=== PATIENT | female | born 1940 | race Caucasian/White ===

== ENCOUNTER 2019-06-27 09:33 | Inpatient (IN) ==
[2019-06-27] MEDS ORDERED: IPRATROPIUM/ALBUTEROL 3 ML AMPUL.NEB NEB ONE (09:42)
--- NOTE | 2019-06-27 09:56 | Emergency Department Note ---
General Adult HPI - General Chief complaint: Shortness of Breath/Dyspnea Stated complaint: SOB Time Seen by Provider: 06/27/19 09:41 Source: patient Mode of arrival: ambulatory Limitations: no limitations - History of Present Illness HPI Narrative: 79-year-old alert white female, former smoker with a long history of COPD on nebulizers and prednisone 5 mg daily for the last month and being followed by pulmonology in [place], last hospital admission for complicated pneumonia with sepsis about 4 years ago per patient, did have her flu and Pneumovax vaccines this season however in spite of that has developed increased shortness of breath and wheezing over the last 1 to 2 weeks with intermittent fever. She is used nebulizer and steroid but not recent antibiotic and came to the emergency department having driven herself from home this morning. She is denied focal neurologic symptoms anginal type chest pain severe weakness vomiting or GI symptoms. Her desires to be treated in the emergency department and then discharged. She is a and lives in [place] but does have an adult grandson age 30 with whom helps to take care of her. Onset (ago): week(s) - Related Data Home Medications Medication Instructions Recorded Confirmed Fluticasone/Salmeterol [Advair 1 puff INH QDAY 12/20/15 06/27/19 100-50 Diskus] Montelukast Sodium [Singulair] 10 mg PO DAILY 12/20/15 06/27/19 Simvastatin [Zocor] 10 mg PO HS 12/20/15 05/28/19 Calcium 600 PO QDAY 05/14/19 06/27/19 acetaminophen 650 mg 650 mg PO BID PRN tab 05/14/19 06/27/19 tablet,extended release albuterol sulfate 2.5 mg INHALATION QID PRN 05/14/19 06/27/19 albuterol sulfate 90 mcg/actuation 2 puff INHALATION BID PRN g 05/14/19 06/27/19 aerosol inhaler fluticasone propionate 230 2 puff INHALATION BID 05/14/19 06/27/19 mcg-salmeterol 21 mcg/actuation HFA inhaler multivit with min-folic 1 tab PO QDAY 05/14/19 06/27/19 acid-lutein 400 mcg-250 mcg chewable tablet multivit,Ca,iron,yrp-NT-jqnxbbd-tqawauv-qnbt-FAQP cap PO 05/14/19 06/27/19 3 mg-133 mcg capsule omeprazole 20 mg capsule,delayed 20 mg PO QDAY 05/14/19 06/27/19 release tiotropium bromide 18 mcg capsule 1 cap INHALATION QDAY 05/14/19 05/16/19 with inhalation device vit C-vit N-bnnulb-wwl-om-3 PO 05/14/19 05/16/19 2 liters oxygen at QHS #1 ea 05/16/19 06/27/19 budesonide 1 mg/2 mL suspension 2 ml INHALATION QDAY 05/16/19 06/27/19 for nebulization triple flex PO 05/16/19 05/16/19 prednisone 10 mg tablet 30 mg PO .COMPLEX tab 05/22/19 06/27/19 Allergies Allergy/AdvReac Type Severity Reaction Status Date / Time hydrocodone Allergy Intermediate Itching Verified 06/27/19 09:15 codeine Allergy Mild Itching Verified 05/28/19 12:50 morphine Allergy Mild Itching Verified 05/28/19 12:50 levofloxacin [From Levaquin] Allergy Unknown Unknown Verified 05/28/19 12:50 risedronate sodium Allergy Unknown Unknown Verified 05/28/19 12:50 [From Actonel] Sulfa (Sulfonamide AdvReac Intermediate Hives Verified 06/27/19 09:15 Antibiotics) Review of Systems All systems ED: reviewed and negative except as stated. Cardiovascular: Reports: as per HPI Respiratory: Reports: as per HPI Gastrointestinal: Reports: as per HPI Past Medical History - Past Medical History [facility], [facility] Narrative: There is a history of a recent CT scan 28 May which showed relative resolution of a right lower lobe nodule from 15 to 10 mm and the initial plan to do a lung biopsy was then scrapped. She has no history of hypertension diabetes or known coronary artery disease. Source: old records reviewed Medical history: Reports: asthma, COPD, GERD, migraine Psychiatric history: Reports: no psych history Surgical history ED: Reports: appendectomy, cholecystectomy, hysterectomy - Social History smoking status: Never smoker Alcohol use: Reports: None Drug use: Reports: none Physical Exam Alert somewhat frail elderly white female appearing moderately dyspneic. Blood pressure is probably unremarkable for her. Saturation is 93% on room air. Limitations: no limitations General appearance: alert Head: atraumatic Eye: Present: normal appearance ENT: Present: normal exam Respiratory: Present: respiratory distress, wheezes, prolonged expiratory phase, decreased breath sounds Cardiovascular: Present: regular rate, normal rhythm Abdominal: Present: soft Extremities: Present: normal inspection Back: Present: normal inspection Course Course Narrative: Clinical presentation is that of a significant COPD exacerbation. She is given DuoNeb, dexamethasone 10 mg intravenous, and empirically 1 g of IV calf tract stone and 500 mg of IV azithromycin. Vital Signs Temperature 97 F 06/27/19 09:33 Pulse Rate 108 H 06/27/19 09:33 Respiratory Rate 32 H 06/27/19 09:33 Blood Pressure 91/58 06/27/19 09:33 Pulse Oximetry (%) 93 06/27/19 09:33 Temperature 97 F 06/27/19 09:33 Pulse Rate 84 06/27/19 12:56 Respiratory Rate 23 H 06/27/19 12:56 Blood Pressure 124/75 06/27/19 12:46 Pulse Oximetry (%) 94 06/27/19 12:56 Medical Decision Making - [facility] Narrative Medical decision making narrative: Exacerbation of COPD rule out pneumIA 12:30 PM: Patient feeling better and still has the desire to go home however I feel despite some relatively favorable labs given her age and exacerbation of CV COPD that admission is more favorable for her. I will attempt to call the hospitalist. [address] dodd agrees to admission will see patient and I believe her prognosis is excellent for recovery. - Lab Data Lab results reviewed: Yes I reviewed the patient's lab results. Lab results narrative: Lab results largely favorable. There is a leukocytosis indicative of infection however lactate is acceptable and troponin is low. BNP is indeterminate CMP is otherwise unremarkable as are the other aspects of the CBC. Result diagrams: 06/27/19 09:42 06/27/19 09:42 Lab Results 06/27/19 06/27/19 06/27/19 Range/Units 09:42 09:42 09:42 WBC 16.5 H (4.5-11.0) K/mcL RBC 4.56 (4.00-5.20) M/mcL Hgb 14.3 (12.0-15.0) g/dL Hct 42.9 (36.0-48.0) % MCV 94.1 (80.0-100.0) fL MCH 31.3 (26.0-34.0) pg MCHC 33.3 (31.0-36.0) g/dL RDW 12.6 (11.5-14.5) % Plt Count 383 (140-440) K/mcL MPV 7.3 L (7.4-10.4) fL Gran % 75.8 (38.0-78.0) % Lymph % (Auto) 13.3 L (15.5-49.0) % [place] % (Auto) 8.0 (1.0-12.0) % Eos % (Auto) 2.7 (0.0-7.0) % Baso % (Auto) 0.2 (0.0-2.0) % Gran # 12.5 H (1.8-8.0) K/mcL Lymph # (Auto) 2.2 (1.5-4.8) K/mcL [place] # (Auto) 1.3 H (0.1-0.9) K/mcL Eos # (Auto) 0.4 (0.0-0.7) K/mcL Baso # (Auto) 0 (0.0-0.3) K/mcL VBG Lactic Acid 1.8 (0.5-2.0) mmol/L Sodium 138 (133-145) mmol/L Potassium 4.1 (3.3-5.1) mmol/L Chloride 99 (96-108) mmol/L Carbon Dioxide 23 (22-30) mmol/L Anion Gap 16.0 (8-16) BUN 16 (8-23) mg/dl Creatinine 0.7 (0.6-1.1) mg/dl GFR Calculation 84 Glucose 96 (70-105) mg/dL Calcium 9.4 (8.6-10.4) mg/dl Total Bilirubin 0.5 (0.0-1.0) mg/dL AST 25 (0-37) U/l ALT 22 (0-40) U/l Alkaline Phosphatase 112 (39-117) U/L Troponin T (0-0.03) ng/ml NT-Pro-B Natriuret Pep (0-450) pg/ml Total Protein 7.3 (5.9-8.4) gm/dL Albumin 3.8 (3.2-5.2) gm/dL Globulin 3.5 (2.2-3.7) gm/dL Albumin/Globulin Ratio 1.1 (1.0-2.3) 06/27/19 06/27/19 Range/Units 09:42 09:42 WBC (4.5-11.0) K/mcL RBC (4.00-5.20) M/mcL Hgb (12.0-15.0) g/dL Hct (36.0-48.0) % MCV (80.0-100.0) fL MCH (26.0-34.0) pg MCHC (31.0-36.0) g/dL RDW (11.5-14.5) % Plt Count (140-440) K/mcL MPV (7.4-10.4) fL Gran % (38.0-78.0) % Lymph % (Auto) (15.5-49.0) % [place] % (Auto) (1.0-12.0) % Eos % (Auto) (0.0-7.0) % Baso % (Auto) (0.0-2.0) % Gran # (1.8-8.0) K/mcL Lymph # (Auto) (1.5-4.8) K/mcL [place] # (Auto) (0.1-0.9) K/mcL Eos # (Auto) (0.0-0.7) K/mcL Baso # (Auto) (0.0-0.3) K/mcL VBG Lactic Acid (0.5-2.0) mmol/L Sodium (133-145) mmol/L Potassium (3.3-5.1) mmol/L Chloride (96-108) mmol/L Carbon Dioxide (22-30) mmol/L Anion Gap (8-16) BUN (8-23) mg/dl Creatinine (0.6-1.1) mg/dl GFR Calculation Glucose (70-105) mg/dL Calcium (8.6-10.4) mg/dl Total Bilirubin (0.0-1.0) mg/dL AST (0-37) U/l ALT (0-40) U/l Alkaline Phosphatase (39-117) U/L Troponin T < 0.01 (0-0.03) ng/ml NT-Pro-B Natriuret Pep 231.5 (0-450) pg/ml Total Protein (5.9-8.4) gm/dL Albumin (3.2-5.2) gm/dL Globulin (2.2-3.7) gm/dL Albumin/Globulin Ratio (1.0-2.3) - Radiology Data Radiology results reviewed: Yes I reviewed the patient's radiology results. Chest x-ray reveals a minimal right middle lobe and right lower lobe infiltrate there is no sign of pneumothorax or pleural effusion. Disposition Pt seen by [facility] TEST/PA only: No Clinical Impression: Community acquired pneumonia Disposition: Xfer As Inpt ([facility]) Condition: Good Referrals: Destinee Johnson MD [Primary Care Provider] -
[2019-06-27] MEDS ORDERED: DEXAMETHASONE 10 MG/ML VIAL IV ONE (09:57)
[2019-06-27] MEDS ORDERED: cefTRIAXone 1 GM VIAL IV ONE ×2 (10:00→15:15)
[2019-06-27] MEDS ORDERED: AZITHROMYCIN 500 MG in DEXTROSE 5% IN WATER 250 ML IV ONE (10:01)
[2019-06-27 10:14] LABS: Basophils # (Auto) 0 K/mcL (0.0-0.3); Basophils % (Auto) 0.2 % (0.0-2.0); Eosinophils # (Auto) 0.4 K/mcL (0.0-0.7); Eosinophils % (Auto) 2.7 % (0.0-7.0); Granulocytes % (Auto) 75.8 % (38.0-78.0); Hematocrit 42.9 % (36.0-48.0); Hemoglobin 14.3 g/dL (12.0-15.0); Lymphocytes # (Auto) 2.2 K/mcL (1.5-4.8); Lymphocytes % (Auto) 13.3 % (15.5-49.0); Mean Cell Volume 94.1 fL (80.0-100.0); Mean Corpuscular HGB Conc 33.3 g/dL (31.0-36.0); Mean Platelet Volume 7.3 fL (7.4-10.4); Monocytes # (Auto) 1.3 K/mcL (0.1-0.9); Platelet Count 383 K/mcL (140-440); RBC 4.56 M/mcL (4.00-5.20); Red Cell Distribution Width 12.6 % (11.5-14.5); WBC 16.5 K/mcL (4.5-11.0)
--- NOTE | 2019-06-27 10:16 | XRay Report ---
HISTORY: Short of breath and cold symptoms FINDINGS: Patient has severe emphysema. There is moderate pulmonary fibrosis in both lung apices. There is an ill-defined interstitial infiltrate in the right lower lobe and right middle lobe. No lobar consolidation is present. There is no evidence of a mass, pleural effusion, adenopathy or congestive heart failure. The heart size is relatively small. Spine is osteopenic. IMPRESSION: mild interstitial pneumonia in the right middle and lower lobes superimposed upon underlying emphysema and pulmonary fibrosis Interpreted and Authenticated by: Mor Walters 06/27/19
[2019-06-27 10:33] LABS: ALT/SGPT 22 U/l (0-40); AST/SGOT 25 U/l (0-37); Albumin 3.8 gm/dL (3.2-5.2); Albumin/Globulin Ratio 1.1 (1.0-2.3); Alkaline Phosphatase 112 U/L (39-117); Bilirubin,Total 0.5 mg/dL (0.0-1.0); Blood Urea Nitrogen 16 mg/dl (8-23); Calcium 9.4 mg/dl (8.6-10.4); Carbon Dioxide 23 mmol/L (22-30); Chloride 99 mmol/L (96-108); Globulin 3.5 gm/dL (2.2-3.7); Glomerular Filtration Rate 84; Glucose 96 mg/dL (70-105)
--- NOTE | 2019-06-27 13:31 | Internal Med History&Physical ---
Medical - H&P: HPI Patient information: Note initiated : 06/27/19 at 1:28 pm Service Date, if different from initiated Date: [] Patient: Toyin Peña a 79 y/o F admitted on for Shortness of breath. Chief Complaint: [] History of present illness: Ms. Peña is a 79 year old F Presents the ED with coughing shortness of breath. She says about 9 days ago she developed's cold like symptoms with body aches gradually improved yesterday morning she is feeling okay but this morning she suddenly felt very short of breath she had a productive cough of yellow-green sputum she felt very wheezy. Presented to the ED. In the ED she received antibiotics steroids and nebulizer treatment which she does feel better. She is oxygenating appropriately on her home oxygen requirement of 2 L. Was noted to be tachypneic and tachycardic initially low blood pressure but not hypotensive. Leukocytosis. Recent diagnosis of a lung nodule right lower lobe. She was given a lung biopsy and a follow-up CT showed improvement in the size of the right lower lobe nodule. Chest x-ray today does show an infiltrate right lower lobe and also right middle lobe. Patient desired to go home but per discussion with ED provider was recommended to stay and patient was willing. She reports fevers and chills. Headache at times. Denies chest pain Review of Systems: Pertinent positives as above. Denies nausea/vomiting/chest or abdominal pain/diarrhea. Remaining 10 point review of system reviewed negative Medical - H&P: PMH Medical history: Medical History (Last Reviewed 06/27/19 @ 09:28 by Ammy Machado DO) Nodule of right lung (Chronic) Pruritus (Chronic) Heart murmur (Chronic) Diarrhea (Chronic) Chronic rhinitis (Chronic) Cramp in lower leg (Chronic) Carotid bruit (Chronic) Osteoarthritis (Chronic) Hyperlipidemia (Chronic) Dry skin dermatitis (Chronic) Pulmonary hypertension (Chronic) Depression (Chronic) Esophageal dysphagia (Chronic) GERD (gastroesophageal reflux disease) (Chronic) Severe chronic obstructive pulmonary disease (Chronic) Chronic sinusitis (Chronic) Rhinitis, allergic (Chronic) Arthritis of both hands (Chronic) Allergies (Chronic) Lung collapse (Chronic) Asthma (Chronic) COPD (chronic obstructive pulmonary disease) (Chronic) on 2 L of oxygen at home Acute respiratory failure (Acute) Right lower lobe pneumonia (Acute) Septic shock (Acute) FAY (acute kidney injury) (Acute) COPD exacerbation (Chronic) Laceration of left lower leg without complication (Acute) Wound infection (Acute) Lower leg laceration with complication (Acute) Encounter for wound re-check (Acute) Encounter for removal of sutures (Acute) Acute exacerbation of chronic obstructive airways disease (Acute) Asthma with exacerbation (Acute) Collapse of right lung (Acute) Past Surgical History (Last Reviewed 05/22/19 @ 14:28 by JOSESITO Streeter) History of appendectomy (Chronic) History of arthroscopy of left knee (Chronic) History of bladder surgery (Chronic) History of cholecystectomy (Chronic) History of esophagogastroduodenoscopy (EGD) (Chronic) History of partial hysterectomy (Chronic) History of surgery on arm (Chronic) Family History (Last Reviewed 05/22/19 @ 14:28 by JOSESITO Streeter) Father Heart trouble Diabetes mellitus Myocardial infarction Heart disease Sister Arthritis Asthma Diabetes mellitus Mother Vertigo Hiatal hernia Old age Grandmother Asthma Grandfather Diabetes mellitus Brother Assault by being hit or run over by motor vehicle, initial encounter Social History (Last Updated 06/27/19 @ 09:30 by Ammy Machado DO) Quit smoking the 80s Drinks alcohol occasionally Lives at home with her grandson Medical - H&P: Meds Home Medications Medication Instructions Recorded Confirmed Type Fluticasone/Salmeterol [Advair 1 puff INH QDAY 12/20/15 06/27/19 History 100-50 Diskus] Montelukast Sodium [Singulair] 10 mg PO DAILY 12/20/15 06/27/19 History Simvastatin [Zocor] 10 mg PO HS 12/20/15 05/28/19 History Calcium 600 PO QDAY 05/14/19 06/27/19 History acetaminophen 650 mg 650 mg PO BID PRN tab 05/14/19 06/27/19 History tablet,extended release albuterol sulfate 2.5 mg INHALATION QID PRN 05/14/19 06/27/19 History albuterol sulfate 90 mcg/actuation 2 puff INHALATION BID PRN g 05/14/19 06/27/19 History aerosol inhaler fluticasone propionate 230 2 puff INHALATION BID 05/14/19 06/27/19 History mcg-salmeterol 21 mcg/actuation HFA inhaler multivit with min-folic 1 tab PO QDAY 05/14/19 06/27/19 History acid-lutein 400 mcg-250 mcg chewable tablet multivit,Ca,iron,qoi-CV-qsbuamz-uvdklyk-ybps-DNAN cap PO 05/14/19 06/27/19 History 3 mg-133 mcg capsule omeprazole 20 mg capsule,delayed 20 mg PO QDAY 05/14/19 06/27/19 History release tiotropium bromide 18 mcg capsule 1 cap INHALATION QDAY 05/14/19 05/16/19 History with inhalation device vit C-vit N-lwwcne-wdy-om-3 PO 05/14/19 05/16/19 History 2 liters oxygen at QHS #1 ea 05/16/19 06/27/19 History budesonide 1 mg/2 mL suspension 2 ml INHALATION QDAY 05/16/19 06/27/19 History for nebulization triple flex PO 05/16/19 05/16/19 History prednisone 10 mg tablet 30 mg PO .COMPLEX tab 05/22/19 06/27/19 History Tiotropium [place] [Spiriva] 18 mcg INH DAILY 06/27/19 06/27/19 History Allergies Allergy/AdvReac Type Severity Reaction Status Date / Time hydrocodone Allergy Intermediate Itching Verified 06/27/19 09:15 codeine Allergy Mild Itching Verified 05/28/19 12:50 morphine Allergy Mild Itching Verified 05/28/19 12:50 levofloxacin [From Levaquin] Allergy Unknown Unknown Verified 05/28/19 12:50 risedronate sodium Allergy Unknown Unknown Verified 05/28/19 12:50 [From Actonel] Sulfa (Sulfonamide AdvReac Intermediate Hives Verified 06/27/19 09:15 Antibiotics) Medical - H&P: Exam - Constitutional Vitals: Temp Pulse Resp BP Pulse Ox 97 F 94 H 15 135/65 93 06/27/19 09:33 06/27/19 13:25 06/27/19 13:25 06/27/19 13:25 06/27/19 13:25 Exam: General: Alert, Awake, No acute Distress Eyes/N/T: EOMI, PERRL, dry MM Head/Neck: neck supple, normocephalic atraumatic CV: RRR, No murmurs, normal s1/s2 Pulm: b/l wheezing, no rales Abd: soft, nontender, +BS x4 Ext: no clubbing/cyanosis/edema Neuro: Alert, no focal deficits, moves all extremities, CN 2-12 grossly intact, symmetrical strength b/l upper/lower, sensations intact b/l upper/lower Skin: warm/dry Medical - H&P: Reslt - Labs CBC & Chem 7: 06/27/19 09:42 06/27/19 09:42 Labs: Short CBC 06/27/19 Range/Units 09:42 WBC 16.5 H (4.5-11.0) K/mcL Hgb 14.3 (12.0-15.0) g/dL Hct 42.9 (36.0-48.0) % Plt Count 383 (140-440) K/mcL BMP 06/27/19 09:42 Sodium 138 Potassium 4.1 Chloride 99 Carbon Dioxide 23 BUN 16 Creatinine 0.7 Glucose 96 Calcium 9.4 Cardiac Enzymes 06/27/19 Range/Units 09:42 Troponin T < 0.01 (0-0.03) ng/ml Liver Function 06/27/19 Range/Units 09:42 Total Bilirubin 0.5 (0.0-1.0) mg/dL AST 25 (0-37) U/l ALT 22 (0-40) U/l Alkaline Phosphatase 112 (39-117) U/L Albumin 3.8 (3.2-5.2) gm/dL - Impressions Chest today with infiltrate right Medical - H&P: A/P - Narrative A/P Narrative: 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 *suspected PNA: PSI 87 -cxr with noted infiltrate RML/RLL, RLL infiltrate noted as nodule on recent CT that reduced in size on most recent CT, thus original lung bx ordered d/c'd *Pulm Fibrosis: *GERD * P: -vbg/pct pending -steroids(wean), nebs -IS/acapella -Abx, pending SC - -pt/ot -ppx: Lovenox DNR
[2019-06-27] MEDS ORDERED: 0.9 % SODIUM CHLORIDE 1,000 ML IV ONE (13:39)
[2019-06-27 13:58] LABS: ABG Methemoglobin 0.3 % (0.4-1.5); Total Hemoglobin 13.5 gm/dL (12.0-15.0); VBG HCO3 28.6 mmol/L (24.0-28.0); VBG Oxygen Saturation 81.9 % (40.0-70.0); VBG PH 7.44 U (7.32-7.42); VBG PO2 49 mmHg (25-40); VBG Total CO2 29.9 mmol/L (25.0-29.0)
[2019-06-27] MEDS ORDERED: 0.9 % SODIUM CHLORIDE 1,500 ML IV SCH (14:42)
[2019-06-27] MEDS ORDERED: SENNOSIDES 1 TABLET PO PRN (14:42)
[2019-06-27] MEDS ORDERED: MAGNESIUM SULFATE 2 GM/50 ML BAG IV PRN (14:42)
[2019-06-27] MEDS ORDERED: POLYETHYLENE GLYCOL 3350 17 GM PACKET PO PRN (14:42)
[2019-06-27] MEDS ORDERED: ONDANSETRON 4 MG/2 ML VIAL IV PRN (14:42)
[2019-06-27] MEDS ORDERED: POTASSIUM CHLORIDE 40 MEQ in DEXTROSE 5% IN WATER 500 ML IV PRN (14:42)
[2019-06-27] MEDS ORDERED: ACETAMINOPHEN 325 MG TABLET PO PRN (14:42)
[2019-06-27] MEDS ORDERED: IPRATROPIUM/ALBUTEROL 3 ML AMPUL.NEB NEB PRN (14:42)
[2019-06-27] MEDS ORDERED: POTASSIUM CHLORIDE 20 MEQ TABLET PO PRN ×2 (14:42)
[2019-06-27] MEDS: 0.9 % SODIUM CHLORIDE 10 ML SYRINGE IV SCH ×2 (16:10→20:09)
[2019-06-27] MEDS: IPRATROPIUM/ALBUTEROL 3 ML AMPUL.NEB NEB SCH (17:58)
[2019-06-27] MEDS: MONTELUKAST 10 MG TABLET PO SCH (20:09)
[2019-06-27] MEDS: SIMVASTATIN 10 MG TABLET PO SCH (20:09)
[2019-06-27] MEDS: BUDESONIDE 0.5 MG/2 ML AMPUL.NEB NEB SCH (20:29)
[2019-06-28] MEDS: IPRATROPIUM/ALBUTEROL 3 ML AMPUL.NEB NEB SCH ×4 (00:59→19:13)
[2019-06-28] MEDS: 0.9 % SODIUM CHLORIDE 10 ML SYRINGE IV SCH ×3 (05:47→20:37)
[2019-06-28 06:02] LABS: Basophils # (Auto) 0 K/mcL (0.0-0.3); Basophils % (Auto) 0.2 % (0.0-2.0); Eosinophils # (Auto) 0 K/mcL (0.0-0.7); Eosinophils % (Auto) 0.3 % (0.0-7.0); Granulocytes % (Auto) 78.2 % (38.0-78.0); Hematocrit 41.7 % (36.0-48.0); Hemoglobin 13.7 g/dL (12.0-15.0); Lymphocytes # (Auto) 2.2 K/mcL (1.5-4.8); Lymphocytes % (Auto) 14.3 % (15.5-49.0); Mean Cell Volume 95.3 fL (80.0-100.0); Mean Corpuscular HGB Conc 32.9 g/dL (31.0-36.0); Mean Platelet Volume 7.3 fL (7.4-10.4); Monocytes # (Auto) 1.1 K/mcL (0.1-0.9); Platelet Count 405 K/mcL (140-440); RBC 4.38 M/mcL (4.00-5.20); Red Cell Distribution Width 12.8 % (11.5-14.5); WBC 15.4 K/mcL (4.5-11.0)
[2019-06-28 06:19] LABS: ALT/SGPT 22 U/l (0-40); AST/SGOT 19 U/l (0-37); Albumin 3.7 gm/dL (3.2-5.2); Albumin/Globulin Ratio 1.1 (1.0-2.3); Alkaline Phosphatase 116 U/L (39-117); Bilirubin,Direct < 0.2 mg/dL (0.0-0.3); Bilirubin,Total 0.4 mg/dL (0.0-1.0); Blood Urea Nitrogen 17 mg/dl (8-23); Calcium 9.2 mg/dl (8.6-10.4); Carbon Dioxide 21 mmol/L (22-30); Chloride 102 mmol/L (96-108); Globulin 3.3 gm/dL (2.2-3.7); Glomerular Filtration Rate 88; Glucose 90 mg/dL (70-105); Lactate Dehydrogenase 248 U/L (94-250); Phosphorous 3.7 mg/dL (2.7-4.5); Triglycerides 135 mg/dl (<150)
[2019-06-28] MEDS: BUDESONIDE 0.5 MG/2 ML AMPUL.NEB NEB SCH (07:10)
--- NOTE | 2019-06-28 08:04 | Internal Med Progress Note ---
Medical - PN: Subj Patient information: Note initiated : 06/28/19 at 7:59 am Service Date, if different from initiated Date: [] Patient: Toyin Peña 79 y/o F admitted on 06/27/19 for Shortness of breath. Chief Complaint: [] Interval history: Ms. Peña is a 79 year old F Presents the ED with coughing shortness of breath. She says about 9 days ago she developed's cold like symptoms with body aches gradually improved yesterday morning she is feeling okay but this morning she suddenly felt very short of breath she had a productive cough of yellow-green sputum she felt very wheezy. Presented to the ED. In the ED she received antibiotics steroids and nebulizer treatment which she does feel better. She is oxygenating appropriately on her home oxygen requirement of 2 L. Was noted to be tachypneic and tachycardic initially low blood pressure but not hypotensive. Leukocytosis. Recent diagnosis of a lung nodule right lower lobe. She was given a lung biopsy and a follow-up CT showed improvement in the size of the right lower lobe nodule. Chest x-ray today does show an infiltrate right lower lobe and also right middle lobe. Patient desired to go home but per discussion with ED provider was recommended to stay and patient was willing. She reports fevers and chills. Headache at times. Denies chest pain 06/28 Poor sleep. She states overall she is improving. She feels her cough is better and her shortness of breath is improving not quite to baseline but getting better. Review of Systems: Pertinent positives as above. Denies nausea/vomiting/chest or abdominal pain/diarrhea. - Constitutional Vitals: Vital Signs Temp Pulse Resp BP Pulse Ox 97.7 F 78 14 117/65 94 06/28/19 04:00 06/28/19 07:10 06/28/19 07:10 06/28/19 04:00 06/28/19 07:10 Period Temp Pulse Resp BP Sys/San Pulse Ox Last 24 Hr 97 F-98 F 72-108 14-32 91-135/53-75 92-95 Intake and Output 06/27/19 06/28/19 06/28/19 21:59 05:59 13:59 Intake Total 97 1850 Output Total 400 Balance -303 1850 Weight 59.058 kg Intake & Output: Intake & Output 06/27/19 06/28/19 06/28/19 21:59 05:59 13:59 Intake Total 97 1850 Output Total 400 Balance -303 1850 Weight 59.058 kg Intake: IV 97 1500 Sodium Chloride 0.9% 1,500 ml @ 97 1500 200 mls/hr IV .Q7H30M [facility] Rx#: [id number] Oral 350 Output: Void Amount 400 Other: Urine Odor Normal # Voids 1 2 Exam: General: Alert, Awake, No acute Distress Eyes/N/T: EOMI, Head/Neck: neck supple, CV: RRR, No murmurs, Pulm: b/l wheezing, diminished b/l, no rales Abd: soft, nontender, +BS x4 Ext: no clubbing/cyanosis/edema Neuro: Alert, no focal deficits, moves all extremities, Skin: warm/dry Medical - PN: Obj Da - Labs CBC & Chem 7: 06/28/19 04:40 06/28/19 04:40 Labs: Abnormal Lab Results 06/28/19 06/28/19 06/27/19 04:40 04:40 13:34 WBC 15.4 H MPV 7.3 L Gran % 78.2 H Lymph % (Auto) 14.3 L Gran # 12.1 H [place] # (Auto) 1.1 H ABG Methemoglobin 0.3 L VBG pH 7.44 H VBG pO2 49 H VBG HCO3 28.6 H VBG Total CO2 29.9 H VBG O2 Saturation 81.9 H VBG Base Excess 4.0 H Carboxyhemoglobin 3.5 H Carbon Dioxide 21 L GGT 44 H C-Reactive Protein 06/27/19 06/27/19 09:42 09:42 WBC 16.5 H MPV 7.3 L Gran % Lymph % (Auto) 13.3 L Gran # 12.5 H [place] # (Auto) 1.3 H ABG Methemoglobin VBG pH VBG pO2 VBG HCO3 VBG Total CO2 VBG O2 Saturation VBG Base Excess Carboxyhemoglobin Carbon Dioxide GGT C-Reactive Protein 3.7 H Meds: Medications Acetaminophen (Tylenol) 650 mg PO Q6HP PRN PRN Reason: PAIN/FEVER > 101 Albuterol/Ipratropium (Duoneb) 3 ml NEB Q6HRT [facility] Last Admin: 06/28/19 07:10 Dose: 3 ml Documented by: Albuterol/Ipratropium (Duoneb) 3 ml NEB Q4HP PRN PRN Reason: Shortness Of Breath Budesonide (Pulmicort) 0.5 mg NEB Q12H [facility] Last Admin: 06/28/19 07:10 Dose: 0.5 mg Documented by: Enoxaparin Sodium (Lovenox) 40 mg SQ DAILY [facility] Potassium Chloride 40 meq/ (Dextrose) 520 mls @ 130 mls/hr IV UD PRN PRN Reason: Potassium < 3 Magnesium Sulfate (Magnesium Sulfate) 2 gm in 50 mls @ 50 mls/hr IV UD PRN PRN Reason: Magnesium </= 1.6 Ceftriaxone Sodium 2 gm/ (Dextrose) 50 mls @ 100 mls/hr IV DAILY [facility]; Protocol Azithromycin 500 mg/ Dextrose 250 mls @ 250 mls/hr IV DAILY [facility]; Protocol Stop: 06/29/19 09:59 Montelukast Sodium (Singular) 10 mg PO HS [facility] Last Admin: 06/27/19 20:09 Dose: 10 mg Documented by: Omeprazole (Prilosec) 20 mg PO ACB [facility] Ondansetron HCl (Zofran) 4 mg IV Q4HP PRN PRN Reason: Nausea And Vomiting Polyethylene Glycol (Miralax) 17 gm PO DAILYP PRN PRN Reason: Constipation Potassium Chloride (Kdur) 40 meq PO UD PRN PRN Reason: Potssium is 3-3.5 Potassium Chloride (Kdur) 40 meq PO UD PRN PRN Reason: Potassium < 3 Senna (Senokot) 2 tab PO DAILYP PRN PRN Reason: Constipation Simvastatin (Zocor) 10 mg PO HS [facility] Last Admin: 06/27/19 20:09 Dose: 10 mg Documented by: Sodium Chloride (Saline Flush) 10 ml IV Q8 [facility] Last Admin: 06/28/19 05:47 Dose: Not Given Documented by: Tiotropium [place] (Spiriva) 18 mcg INH DAILY [facility] - ABG Interpretation ABG results: 06/27/19 13:34 ABG Methemoglobin 0.3 L VBG pH 7.44 H VBG pCO2 43.0 VBG pO2 49 H VBG HCO3 28.6 H VBG Total CO2 29.9 H VBG O2 Saturation 81.9 H VBG Base Excess 4.0 H Medical - PN: A/P - Time Spent With Patient Total time spent is greater than 50% in coordination of care (as documented) at patient's floor/unit and/or counseling patient: - Narrative A/P Narrative: 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 -resp viral panel only rhinovirus -still symptomatic *suspected PNA: PSI 87 -cxr with noted infiltrate RML/RLL, RLL infiltrate noted as nodule on recent CT that reduced in size on most recent CT, thus original lung bx ordered d/c'd *Pulm Fibrosis: *GERD * P: -steroids(wean), nebs -IS/acapella -Abx, pending SC - -pt/ot -ppx: Lovenox/home ppi DNR Medical - PN: Qual - VTE Deep Vein Thrombosis/Pulmonary Embolism Present on Admission: No
[2019-06-28] MEDS: ENOXAPARIN 40 MG/0.4 ML SYRINGE SQ SCH (08:22)
[2019-06-28] MEDS: AZITHROMYCIN 500 MG in DEXTROSE 5% IN WATER 250 ML IV SCH (08:22)
[2019-06-28] MEDS: cefTRIAXone 2 GM in DEXTROSE 5% IN WATER 50 ML IV SCH (08:22)
[2019-06-28] MEDS: OMEPRAZOLE 20 MG CAPSULE PO SCH (08:22)
[2019-06-28] MEDS: methylPREDNISolone SOD SUCC 40 MG/ML VIAL IV SCH ×3 (08:26→21:53)
[2019-06-28] MEDS: TIOTROPIUM BROMIDE 18 MCG INHALANT INH SCH (09:52)
--- NOTE | 2019-06-28 11:56 | Discharge Summary ---
Medical - DS: Prov Patient information: Note initiated : 06/28/19 at 11:52 am Service Date, if different from initiated Date: [] Patient: Toyin Peña 79 y/o F admitted on 06/27/19 for Shortness of breath. Chief Complaint: [] Date of admission: 06/27/19 14:16 Discharge date: 06/29/19 Primary care physician: Destinee Johnson Consults: 06/27/19 Consult to Physician [CONS] Stat Comment: Consulting Provider: Gwyn Keating Reason For Exam: Physician to Consult Medical - DS: Meds - Discharge Medications Prescriptions: Doxycycline Monohydrate 100 mg PO BID #10 tab predniSONE [Prednisone] 40 mg PO QAC #1 tab Active and Home Medications: Home Medications Montelukast Sodium [Singulair] 10 mg PO HS 12/20/15 [History Confirmed 06/27/19 Last Taken 06/27/19] Simvastatin [Zocor] 10 mg PO HS 12/20/15 [History Confirmed 06/27/19 Last Taken 06/26/19] acetaminophen 650 mg tablet,extended release 650 mg PO HS tab 05/14/19 [History Confirmed 06/27/19 Last Taken 06/26/19 20:00] albuterol sulfate 2.5 mg INHALATION QID PRN 05/14/19 [History Confirmed 06/27/19 Last Taken 06/27/19 03:00] albuterol sulfate 90 mcg/actuation aerosol inhaler 2 puff INHALATION BID PRN g 05/14/19 [History Confirmed 06/27/19 Last Taken 06/27/19] fluticasone propionate 230 mcg-salmeterol 21 mcg/actuation HFA inhaler 2 puff INHALATION BID 05/14/19 [History Confirmed 06/27/19 Last Taken Unknown] omeprazole 20 mg capsule,delayed release 20 mg PO QDAY 05/14/19 [History Confirmed 06/27/19 Last Taken 06/27/19] tiotropium bromide 18 mcg capsule with inhalation device 1 cap INHALATION QDAY 05/14/19 [History Confirmed 06/27/19 Last Taken 06/27/19] 2 liters oxygen at QHS 2 each INH QHS #1 ea 05/16/19 [History Confirmed 06/27/19 Last Taken 06/27/19 2 L] budesonide 1 mg/2 mL suspension for nebulization 2 ml INHALATION QDAY 05/16/19 [History Confirmed 06/27/19 Last Taken 06/27/19] prednisone 10 mg tablet 5 mg PO QDAY tab 05/22/19 [History Confirmed 06/27/19 Last Taken 06/27/19] Calcium Carbonate/Vitamin D3 [Calcium 600+D Softgel] 1 cap PO BID 06/27/19 [History Confirmed 06/27/19 Last Taken 06/27/19] Cholecalciferol (Vitamin D3) [Vitamin D3] 1 cap PO DAILY 06/27/19 [History Confirmed 06/27/19 Last Taken Unknown] Hair, Skin and Nails Tablet 1 tab PO TID 06/27/19 [History Confirmed 06/27/19 Last Taken Unknown] Multivit-Min/FA/Lycopen/Lutein [Centrum Silver Tablet] 1 tab PO DAILY 06/27/19 [History Confirmed 06/27/19 Last Taken Unknown] Preservision Areds Softgel 1 tab PO BID 06/27/19 [History Confirmed 06/27/19 Last Taken Unknown] Medical - DS: Hosp Hospital Course: Ms. Peña is a 79 year old F Presents the ED with coughing shortness of breath. She says about 9 days ago she developed's cold like symptoms with body aches gradually improved yesterday morning she is feeling okay but this morning she suddenly felt very short of breath she had a productive cough of yellow-green sputum she felt very wheezy. Presented to the ED. In the ED she received antibiotics steroids and nebulizer treatment which she does feel better. She is oxygenating appropriately on her home oxygen requirement of 2 L. Was noted to be tachypneic and tachycardic initially low blood pressure but not hypotensive. Leukocytosis. Recent diagnosis of a lung nodule right lower lobe. She was given a lung biopsy and a follow-up CT showed improvement in the size of the right lower lobe nodule. Chest x-ray today does show an infiltrate right lower lobe and also right middle lobe. Patient desired to go home but per discussion with ED provider was recommended to stay and patient was willing. She reports fevers and chills. Headache at times. Denies chest pain 06/28 Poor sleep. She states overall she is improving. She feels her cough is better and her shortness of breath is improving not quite to baseline but getting better. 06/29 Patient slept well. No overnight events. Doing well. Stable for discharge. 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 -resp viral panel only rhinovirus *PNA: PSI 87 *Pulm Fibrosis: *GERD * Discharge diagnosis: Acute exacerbation COPD pneumonia pulmonary fibrosis GERD - Time Spent with Patient Total time spent providing and/or coordinating discharge services: Greater than 30 minutes Medical - DS: Exam - Constitutional Vitals: Vital Signs Temp Pulse Pulse Resp BP BP BP 06/28/19 08:00 97.4 F 76 18 132/72 06/28/19 07:10 75 14 06/28/19 04:00 97.7 F 91 H 20 117/65 06/27/19 23:18 97.7 F 85 16 115/66 115/66 06/27/19 18:38 98 F 86 16 115/68 06/27/19 18:01 72 18 06/27/19 16:54 97.6 F 89 18 120/71 06/27/19 14:42 97.4 F 93 H 18 117/73 06/27/19 14:16 97.4 F 93 H 18 117/73 06/27/19 14:13 97 F 95 H 18 127/68 06/27/19 14:01 95 H 18 127/68 06/27/19 13:46 82 28 H 117/69 06/27/19 13:31 86 29 H 124/67 06/27/19 13:25 94 H 15 135/65 06/27/19 13:16 86 24 H 135/65 06/27/19 13:01 84 25 H 125/71 06/27/19 12:56 84 23 H 06/27/19 12:46 82 26 H 124/75 06/27/19 12:31 84 14 128/65 06/27/19 12:16 84 21 126/66 06/27/19 12:14 83 20 121/70 06/27/19 12:09 99 H Pulse Ox 06/28/19 08:00 92 06/28/19 07:10 94 06/28/19 04:00 92 06/27/19 23:18 95 06/27/19 18:38 94 06/27/19 18:01 94 06/27/19 16:54 93 06/27/19 14:42 92 06/27/19 14:16 95 06/27/19 14:13 95 06/27/19 14:01 95 06/27/19 13:46 95 06/27/19 13:31 94 06/27/19 13:25 93 06/27/19 13:16 92 06/27/19 13:01 93 06/27/19 12:56 94 06/27/19 12:46 93 06/27/19 12:31 93 06/27/19 12:16 95 06/27/19 12:14 92 06/27/19 12:09 Intake and Output 06/27/19 06/28/19 06/28/19 21:59 05:59 13:59 Intake Total 97 1850 50 Output Total 400 Balance -303 1850 50 Intake: IV 97 1500 50 Sodium Chloride 0.9% 1,500 ml @ 97 1500 200 mls/hr IV .[id number] JACOB Rx#: [id number] Rocephin 2 gm In Dextrose 5% in 50 Water 50 ml @ 100 mls/hr IV DAILY JACOB Rx#:[id number] Oral 350 Output: Void Amount 400 Other: Urine Odor Normal # Voids 1 2 Weight 59.058 kg Medical - DS: Data Labs on day of discharge: Labs from last 24 hours 06/28/19 06/28/19 06/28/19 04:44 04:40 04:40 WBC 15.4 H RBC 4.38 Hgb 13.7 Hct 41.7 MCV 95.3 MCH 31.4 MCHC 32.9 RDW 12.8 Plt Count 405 MPV 7.3 L Gran % 78.2 H Lymph % (Auto) 14.3 L [place] % (Auto) 7.0 Eos % (Auto) 0.3 Baso % (Auto) 0.2 Gran # 12.1 H Lymph # (Auto) 2.2 [place] # (Auto) 1.1 H Eos # (Auto) 0 Baso # (Auto) 0 ABG Methemoglobin VBG pH VBG pCO2 VBG pO2 VBG HCO3 VBG Total CO2 VBG O2 Saturation VBG Base Excess Carboxyhemoglobin Total Hemoglobin O2 Delivery Level Sodium 139 Potassium 4.1 Chloride 102 Carbon Dioxide 21 L Anion Gap 16.0 BUN 17 Creatinine 0.6 GFR Calculation 88 Glucose 90 Uric Acid 4.0 Calcium 9.2 Phosphorus 3.7 Magnesium 2.0 Total Bilirubin 0.4 Direct Bilirubin < 0.2 GGT 44 H AST 19 ALT 22 Alkaline Phosphatase 116 Lactate Dehydrogenase 248 C-Reactive Protein 5.7 H Total Protein 7.0 Albumin 3.7 Globulin 3.3 Albumin/Globulin Ratio 1.1 Triglycerides 135 Procalcitonin 06/27/19 06/27/19 06/27/19 13:34 13:34 09:42 WBC RBC Hgb Hct MCV MCH MCHC RDW Plt Count MPV Gran % Lymph % (Auto) [place] % (Auto) Eos % (Auto) Baso % (Auto) Gran # Lymph # (Auto) [place] # (Auto) Eos # (Auto) Baso # (Auto) ABG Methemoglobin 0.3 L VBG pH 7.44 H VBG pCO2 43.0 VBG pO2 49 H VBG HCO3 28.6 H VBG Total CO2 29.9 H VBG O2 Saturation 81.9 H VBG Base Excess 4.0 H Carboxyhemoglobin 3.5 H Total Hemoglobin 13.5 O2 Delivery Level Not Reportable Sodium Potassium Chloride Carbon Dioxide Anion Gap BUN Creatinine GFR Calculation Glucose Uric Acid Calcium Phosphorus Magnesium Total Bilirubin Direct Bilirubin GGT AST ALT Alkaline Phosphatase Lactate Dehydrogenase C-Reactive Protein 3.7 H Total Protein Albumin Globulin Albumin/Globulin Ratio Triglycerides Procalcitonin < 0.05 06/27/19 09:42 WBC RBC Hgb Hct MCV MCH MCHC RDW Plt Count MPV Gran % Lymph % (Auto) [place] % (Auto) Eos % (Auto) Baso % (Auto) Gran # Lymph # (Auto) [place] # (Auto) Eos # (Auto) Baso # (Auto) ABG Methemoglobin VBG pH VBG pCO2 VBG pO2 VBG HCO3 VBG Total CO2 VBG O2 Saturation VBG Base Excess Carboxyhemoglobin Total Hemoglobin O2 Delivery Level Sodium Potassium Chloride Carbon Dioxide Anion Gap BUN Creatinine GFR Calculation Glucose Uric Acid Calcium Phosphorus Magnesium Total Bilirubin Direct Bilirubin GGT AST ALT Alkaline Phosphatase Lactate Dehydrogenase C-Reactive Protein Total Protein Albumin Globulin Albumin/Globulin Ratio Triglycerides Procalcitonin TNP Medical - DS: A/P - Patient/Caregiver Discharge Instructions Activity: increase activity as tolerated Diet: Regular Diet Prescriptions: Doxycycline Monohydrate 100 mg PO BID #10 tab predniSONE [Prednisone] 40 mg PO QAC #1 tab - Follow up Plan Follow up with: Destinee Johnson MD [Primary Care Provider] - Disposition: Home, Self-Care Prognosis: Fair Rehab Potential: Fair Overall status at discharge: patient is back to baseline Medical - DS: Qual - VTE Deep Vein Thrombosis/Pulmonary Embolism Present on Admission: No
[2019-06-28] MEDS: SIMVASTATIN 10 MG TABLET PO SCH (20:37)
[2019-06-28] MEDS: MONTELUKAST 10 MG TABLET PO SCH (20:37)
[2019-06-28] MEDS: FLUTICASONE INH SCH (20:54)
[2019-06-28] MEDS: SALMETEROL INH SCH (20:54)
[2019-06-29] MEDS: IPRATROPIUM/ALBUTEROL 3 ML AMPUL.NEB NEB SCH ×2 (01:02→06:57)
[2019-06-29] MEDS: 0.9 % SODIUM CHLORIDE 10 ML SYRINGE IV SCH (05:39)
[2019-06-29] MEDS: methylPREDNISolone SOD SUCC 40 MG/ML VIAL IV SCH (05:39)
[2019-06-29 06:33] LABS: Basophils # (Auto) 0 K/mcL (0.0-0.3); Basophils % (Auto) 0.1 % (0.0-2.0); Eosinophils # (Auto) 0 K/mcL (0.0-0.7); Eosinophils % (Auto) 0 % (0.0-7.0); Granulocytes % (Auto) 87.2 % (38.0-78.0); Hematocrit 39.3 % (36.0-48.0); Hemoglobin 12.8 g/dL (12.0-15.0); Lymphocytes # (Auto) 1.2 K/mcL (1.5-4.8); Lymphocytes % (Auto) 8.6 % (15.5-49.0); Mean Cell Volume 95.5 fL (80.0-100.0); Mean Corpuscular HGB Conc 32.5 g/dL (31.0-36.0); Mean Platelet Volume 7.4 fL (7.4-10.4); Monocytes # (Auto) 0.6 K/mcL (0.1-0.9); Monocytes % (Auto) 4.1 % (1.0-12.0); Platelet Count 419 K/mcL (140-440); RBC 4.12 M/mcL (4.00-5.20); Red Cell Distribution Width 12.7 % (11.5-14.5); WBC 13.5 K/mcL (4.5-11.0)
[2019-06-29 06:40] LABS: Blood Urea Nitrogen 21 mg/dl (8-23); Calcium 9.3 mg/dl (8.6-10.4)
[2019-06-29 06:59] LABS: Carbon Dioxide 24 mmol/L (22-30); Chloride 102 mmol/L (96-108); Glomerular Filtration Rate 88; Glucose 115 mg/dL (70-105)
[2019-06-29] MEDS ORDERED: FLUTICASONE PROPIONATE SPRAY.NAS NS SCH (09:00)
[2019-06-29] MEDS ORDERED: cefTRIAXone 2 GM VIAL ONE (11:01)
[2019-06-29] MEDS: AZITHROMYCIN 500 MG in DEXTROSE 5% IN WATER 250 ML IV SCH (11:04)
[2019-06-29] MEDS: FLUTICASONE INH SCH (11:05)
[2019-06-29] MEDS: SALMETEROL INH SCH (11:05)
[2019-06-29] MEDS: cefTRIAXone 2 GM in DEXTROSE 5% IN WATER 50 ML IV SCH (11:06)
[2019-06-29] MEDS: TIOTROPIUM BROMIDE 18 MCG INHALANT INH SCH ×2 (11:12→13:06)
[2019-06-29] MEDS: ENOXAPARIN 40 MG/0.4 ML SYRINGE SQ SCH (11:53)
[2019-06-29] MEDS: OMEPRAZOLE 20 MG CAPSULE PO SCH (11:56)
== END 2019-06-29 13:00 | disposition home or self-care (01) | DRG 190 ==
LOC: ED 09:33 → MEDSUR 14:15
PROVIDERS: ADMIT Internal Medicine; ATTEND Internal Medicine